=== PATIENT | male | born 1960 | race Caucasian/White ===

== ENCOUNTER 2016-10-28 14:20 | Observation (INO) | payer BC ==
[2016-10-28 15:01] LABS: Hematocrit 52 % (42-52); Hemoglobin 17.5 g/dl (14.0-18.0); Mean Corpuscular HGB Conc 34 g/dl (31-36); Mean Corpuscular Hemoglobin 32 pg (27-31); Mean Corpuscular Volume 94 fL (80-94); Mean Platelet Volume 7 um3 (7.4-10.4); Red Blood Count 5.54 10^6/ul (4.0-5.4); Red Cell Distribution Width 13 % (10.5-15); White Blood Count 9.7 10^3/ul (3.5-10.8)
--- NOTE | 2016-10-28 15:08 | RAD ---
INDICATION: Chest pain COMPARISON: None TECHNIQUE: An AP portable view obtained at 1505 hours is submitted. FINDINGS: Bones/Soft Tissues: There are no acute bony findings. Cardiomediastinal: The cardiomediastinal silhouette is normal. Lungs: There are no infiltrates. Pleura: There are no pleural effusions. Other: None IMPRESSION: NO ACTIVE DISEASE.
[2016-10-28 15:18] LABS: Albumin 4.3 g/dL (3.2-5.2); BUN/Creatinine Ratio 15.9 (8-20); Calcium 9.3 mg/dL (8.6-10.3); EGFR Non-African American 67.6 (>60); Globulin 3.1 g/dL (2-4); Magnesium 2.2 mg/dL (1.9-2.7); Potassium 3.9 mmol/L (3.5-5.0); Total Bilirubin 0.5 mg/dL (0.2-1.0); Total Protein 7.4 g/dL (6.4-8.9)
[2016-10-28] MEDS ORDERED: Aspirin Low Dose CHEW TAB* 81 MG PO ONE (15:19)
[2016-10-28] MEDS ORDERED: Nitroglycerin TAB 0.4 MG* 0.4 MG TAB SL ONE (15:20)
--- NOTE | 2016-10-28 16:23 | ED ---
Houston Castillo Billy, scribed for Lorena Tian MD on 10/28/16 at 1518 . HPI Chest Pain - HPI Summary HPI Summary: Patient is a 56 year-old male coming to [facility] by private car for evaluation of intermittent chest pain for the last two weeks. Patient describes non-radiating , left anterior chest pressure. Pain was unchanged when shoveling snow yesterday or with any movement, although he also states that the pain may sometimes be triggered with activity such as walking. He also states that his symptoms often occur when he has not taken his Losartan medication and his blood pressure elevated. Patient has been seen for stress tests in the past, which have returned normal (last stress test was 2-3 years ago)n in another states. Pt states recently diagnosed with Asthma. Pt states was at his PCP office today and reported the chest pain - was sent to the ED for further eval and stress test. Pt denies diaphoresis, shortness of breath of lightheadedness. Denies any previous cardiac catheterizations. Denies any nausea, vomiting, shortness of breath. Denies any blood thinners. - History of Current Complaint Chief Complaint: EDChestWallPain Time Seen by Provider: 10/28/16 14:47 Hx Obtained From: Patient Onset/Duration: Started Weeks Ago Timing: Intermittent Initial Severity: Moderate Current Severity: Moderate Chest Pain Location: Left Anterior Chest Pain Radiates: No Character: Pressure/Squeezing Aggravating Factor(s): Exertion Alleviating Factor(s): Nothing Associated Signs and Symptoms: Positive: Chest Pain. Negative: Shortness of Breath, Fever, Chills, Nausea, Cough, Abdominal Pain, Vomiting - Allergy/Home Medications Allergies/Adverse Reactions: Allergies Allergy/AdvReac Type Severity Reaction Status Date / Time Diphenhydramine Allergy Dizziness Verified 10/28/16 14:28 [From Benadryl] Home Medications: Home Medications Albuterol 2 neb 10/28/16 [History] Losartan TAB* [Cozaar TAB*] 50 mg PO DAILY 10/28/16 [History Confirmed 10/28/16] Losartan/HCTZ 100/25 (NF) [Hyzaar 100/25 (NF)] 1 tab PO DAILY 10/28/16 [History Confirmed 10/28/16] Montelukast Sodium TAB* [Singulair TAB*] 10 mg PO DAILY 10/28/16 [History Confirmed 10/28/16] Symbicort 160/4.5 (NF) 10/28/16 [History] PMH/Surg Hx/FS Hx/Imm Hx Previously Healthy: Yes Endocrine/Hematology History: Denies: Hx Anticoagulant Therapy, Hx Diabetes Cardiovascular History: Reports: Hx Hypertension - on meds Respiratory History: Reports: Hx Asthma, Hx Sleep Apnea - Surgical History Surgery Procedure, Year, and Place: nasal polyp removal. cyst removal. right knee surgery. 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 Alcohol Use: None Hx Substance Use: No Substance Use Type: Reports: None Hx Tobacco Use: No Smoking Status (MU): Never Smoked Tobacco Review of Systems Negative: Fever, Chills Positive: Chest Pain Negative: Shortness Of Breath, Cough Negative: Abdominal Pain, Vomiting, Diarrhea, Nausea Negative: Rash Negative: Weakness Psychological: Normal All Other Systems Reviewed And Are Negative: Yes Physical Exam Triage Information Reviewed: Yes Vital Signs On Initial Exam: Initial Vitals Temp Pulse Resp BP Pulse Ox 98.4 F 67 18 142/94 99 10/28/16 14:23 10/28/16 14:23 10/28/16 14:23 10/28/16 14:23 10/28/16 14:23 Vital Signs Reviewed: Yes Appearance: Positive: Well-Appearing, No Pain Distress, Well-Nourished Skin: Positive: Warm, Skin Color Reflects Adequate Perfusion, Dry Eyes: Positive: Normal ENT: Positive: Normal ENT inspection, Pharynx normal, TMs normal Neck: Positive: Supple, Nontender, No Lymphadenopathy Respiratory/Lung Sounds: Positive: Clear to Auscultation, Breath Sounds Present , Rhonchi. Negative: Stridor, Wheezes Cardiovascular: Positive: Normal, RRR, Other - no bruits. Negative: Murmur Abdomen Description: Positive: Nontender, No Organomegaly, Soft Bowel Sounds: Positive: Present Musculoskeletal: Positive: Normal, Strength/ROM Intact Neurological: Positive: Normal, Sensory/Motor Intact, Alert, Oriented to Person Place, Time Psychiatric: Positive: Normal AVPU Assessment: Alert - Susan Coma Scale Best Eye Response: 4 - Spontaneous Best Motor Response: 6 - Obeys Commands Best Verbal Response: 5 - Oriented Coma Scale Total: 15 Diagnostics - Vital Signs Vital Signs Temp Pulse Resp BP Pulse Ox 10/28/16 15:02 64 14 96 10/28/16 15:00 138/93 10/28/16 14:23 98.4 F 67 18 142/94 99 - Laboratory Lab Results: Lab Results 10/28/16 Range/Units 14:50 WBC 9.7 (3.5-10.8) 10^3/ul RBC 5.54 H (4.0-5.4) 10^6/ul Hgb 17.5 (14.0-18.0) g/dl Hct 52 (42-52) % MCV 94 (80-94) fL MCH 32 H (27-31) pg MCHC 34 (31-36) g/dl RDW 13 (10.5-15) % Plt Count 270 (150-450) 10^3/ul MPV 7 L (7.4-10.4) um3 Neut % (Auto) 75.3 (38-83) % Lymph % (Auto) 15.7 L (25-47) % [place] % (Auto) 7.6 (1-9) % Eos % (Auto) 0.9 (0-6) % Baso % (Auto) 0.5 (0-2) % Absolute Neuts (auto) 7.3 (1.5-7.7) 10^3/ul Absolute Lymphs (auto) 1.5 (1.0-4.8) 10^3/ul Absolute Monos (auto) 0.7 (0-0.8) 10^3/ul Absolute Eos (auto) 0.1 (0-0.6) 10^3/ul Absolute Basos (auto) 0 (0-0.2) 10^3/ul Absolute Nucleated RBC 0.01 10^3/ul Nucleated RBC % 0.1 Result Diagrams: 10/28/16 14:50 10/28/16 14:50 Lab Statement: Any lab studies that have been ordered have been reviewed, and results considered in the medical decision making process. - Radiology CXR Xray Interpretation: No Acute Changes Radiology Interpretation Completed By: Radiologist - EKG 1447 EKG Interpretation: NSR 62 bpm, no acute ST or T-wave changes. Chest Pain Course/Dx - Course Assessment/Plan: Pt presents through amb triage with reports of chest pressure x 2 weeks - intermittent - sometimes with exertion. Will check EKG, labs. ASA. ntg. likely obv for rule out - Diagnoses Provider Diagnoses: Chest pain - Provider Notifications Discussed Care Of Patient With: Dr. Nguyen (hospitalist) @ 1600: accepts admission. Instructed by Provider To: Admit As Observation Discharge - Discharge Plan Condition: Stable Disposition: ADMITTED TO [facility] The documentation as recorded by the Houston looney Billy accurately reflects the service I personally performed and the decisions made by , Lorena Tian MD.
[2016-10-28] MEDS ORDERED: Temazepam CAP* 15 MG PO PRN (17:37)
[2016-10-28] MEDS ORDERED: Acetaminophen TAB* 325 MG PO PRN (17:37)
[2016-10-28] MEDS ORDERED: Losartan TAB* 25 MG PO ONE (18:17)
[2016-10-28] MEDS ORDERED: Omeprazole CAP* 20 MG PO ONE (18:17)
[2016-10-28] MEDS ORDERED: Acetaminophen TAB* 325 MG PO ONE (19:52)
[2016-10-28] MEDS: Mometasone/Formoter 100/5 MDI INH SCH (20:35)
--- NOTE | 2016-10-28 21:55 | HP ---
HISTORY AND PHYSICAL: DATE OF ADMISSION: 10/28/16 PRIMARY CARE PROVIDER: Dr. Rudd. CHIEF COMPLAINT: Chest pain. HISTORY OF PRESENT ILLNESS: Mr. Kovacs is a 56-year-old male who saw Dr. Rudd today for routine medical evaluation and a physical. The patient stated that he was just recently diagnosed with asthma from an outpatient PFT result. Dr. Rudd placed the patient on Symbicort which he has not been able to fill yet. On review of systems, the patient stated that he has been having chest pains for the past 2 years. Approximately 2 to 3 years ago, he had a negative cardiac stress test in [place]. He moved from [place] in May 2016. His chest pains occur approximately 3 times a week and they are not related to exercise. He describes the discomfort as actually chest pressure localized in bilateral upper chest, nonradiating, lasting "for a while " and the discomfort has no alleviating or aggravating factors. The patient was sent by Dr. Rudd for evaluation in the ER. Here, his EKG is unremarkable and troponin is negative. The patient is going to be placed on observation with a stress test in the morning. PAST MEDICAL HISTORY: 1. Hypertension. 2. Obstructive sleep apnea. The patient did not tolerate CPAP. 3. History of recently diagnosed asthma. 4. History of right knee surgery and recent steroid injection to the right knee 2 weeks ago. 5. History of nasal polyp removal several times. OUTPATIENT MEDICATIONS: Include: 1. Hyzaar 100/25 one tablet daily. 2. Also, Cozaar 50 mg daily. 3. Singulair 10 mg daily. 4. Symbicort 160/4.5 b.i.d. 5. Albuterol inhaler on a p.r.n. basis. ALLERGIES: BENADRYL causes the patient to be "hyper." He also is allergic to CATS. FAMILY HISTORY: Positive for mother who in her 70s secondary to lung cancer. Father when the patient was a baby due to a train accident. SOCIAL HISTORY: The patient denies tobacco, alcohol, or drug use. 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 He is and currently lives alone. He lists 2 people on his surrogate decision making list. One is Marcin Kovacs, his father and another one is Cyndy Byrd, she is a nurse practitioner from [place]. REVIEW OF SYSTEMS: The patient stated that the patient was diagnosed with peripheral neuropathy in his toes, had been numb and tingling for several years now. He also stated that he hears his "lung wheeze " after exercise. Once again, the chest pressure that he had been experiencing for several years now is not related to exercise and different from his asthma symptoms. All the remaining 14 systems were reviewed with the patient and were otherwise negative. PHYSICAL EXAMINATION GENERAL: The patient is a very pleasant 56-year-old male, who is in no acute distress. Alert, awake, and oriented x3. VITAL SIGNS: Blood pressure of 131/81, heart rate 62 and regular, respiratory rate 16, oxygen saturation 97% on room air, and temperature of 97.5. HEENT: Head: Atraumatic, normocephalic. Eyes: Pupils equal, reactive to light and accommodation. Oropharynx clear. Mucosa moist. NECK: Supple. No JVD, no bruit bilaterally. RESPIRATORY: Clear to auscultation bilaterally. CARDIOVASCULAR: Regular rate and rhythm. No murmur. ABDOMEN: Soft, nontender. Bowel sounds present in all 4 quadrants. EXTREMITIES: There is no edema. Pulses are +2 bilaterally. No clubbing or cyanosis. NEUROLOGIC EVALUATION: Nonfocal. Cranial nerves II through XII grossly intact. Motor strength is 5/5 bilaterally. LABORATORY DATA: Shows sodium of 135, potassium 3.9, chloride 102, carbon dioxide 26, BUN 18, creatinine 1.13. White blood cell count of 9.7, hemoglobin of 17.5; hematocrit is 52, and platelets of 217. Portable chest x-ray, impression: "No active disease." EKG showed normal sinus rhythm with heart rate of 62 beats per minute with no ST changes. ASSESSMENT AND PLAN: A 56-year-old male with a recently diagnosed asthma who has been complaining of chest pains for the past 2 years. The patient is going to be placed on overnight observation on telemetry monitored bed. If his second troponin continues to be negative, he is going to undergo a cardiac stress test in the morning. In regards to his asthma, he is not in exacerbation. Symbicort is not on the hospital's formulary and I will place him on Advair during his hospital stay. For his hypertension, his losartan is going to be continued. For DVT prophylaxis, the patient is low risk. TIME SPENT: Approximately 65 minutes were spent on admission of this patient, more than half that time was spent [id number] with the patient during the interview and physical exam. CC: Dr. Rudd; Cyndy Byrd NP, [facility], [place], [place] , fax [phone] * [id number]/[facility] #: [id number] MTDD
[2016-10-29] MEDS ORDERED: Omeprazole CAP* 20 MG PO SCH (06:00)
[2016-10-29] MEDS ORDERED: Losartan TAB* 25 MG PO SCH (09:00)
[2016-10-29] MEDS ORDERED: Montelukast Sodium TAB* 10 MG PO SCH (09:00)
[2016-10-29] MEDS: Mometasone/Formoter 100/5 MDI INH SCH (09:52)
--- NOTE | 2016-10-29 11:31 | RAD ---
Edited for charges. INDICATION: Chest pain COMPARISON: None TECHNIQUE: A single day SPECT protocol was utilized. Rest images were acquired following the intravenous injection of 10.8 millicuries of technetium 99m tetrofosmin. Exercise stress images were acquired following the intravenous administration of 26.0 millicuries of technetium 99m tetrofosmin. The patient was exercised to a peak heart rate of 154 greater than 85% of age predicted maximum which is 93 of age predicted maximum. FINDINGS: There are no defects of the stress-induced or fixed nature. The cardiac chamber size is normal. There are no wall motion abnormalities. The ejection fraction is calculated at 59 percent during stress. IMPRESSION: NO DEFECTS OR STRESS-INDUCED OR FIXED NATURE. ASSESSMENT: LOW-RISK Based on imaging criteria from ACC/AHA 2002 Guideline Update for the Management of Patients With Chronic Stable Angina Table 23. Noninvasive Risk Stratification. MTDD
[2016-10-29 12:18] VITALS: BP 127/87
--- NOTE | 2016-10-30 02:34 | DS ---
DISCHARGE SUMMARY: DATE OF ADMISSION: 10/28/16 DATE OF DISCHARGE: 10/29/16 PRIMARY CARE PROVIDER: Dr. Rudd DISCHARGE DIAGNOSES: 1. Chest pain, most likely noncardiac, with low probability cardiac stress test documented on 10/29/16. SECONDARY DIAGNOSES: 1. History of asthma. 2. History of hypertension. 3. History of obstructive sleep apnea. 4. History of osteoarthritis. MEDICATIONS AT DISCHARGE: Unchanged from admission, which include: 1. Hyzaar 100/25 one tablet daily. 2. Cozaar 50 mg a day. 3. Singular 10 mg a day. 4. Symbicort 160/4.5 b.i.d. 5. Albuterol inhaler on a p.r.n. basis. HOSPITALIZATION COURSE: Mr. Varinder Kovacs is a 56-year-old male who presented complaining of chest pain that had been ongoing intermittently for the past 2 years as described in the history and physical on 10/28/16. The patient remained chest pain-free throughout his hospital stay. His troponins were negative and his telemetry monitoring showed no abnormalities. He underwent a treadmill stress test during which he stated he felt "great." It was read as low risk with EF of 59% during stress and normal cardiac size. There were also no defects of the stress-induced or fixed nature. The patient is being discharged home to follow up with Dr. Rudd in approximately 1 week. Physical exam at time of discharge unchanged from admission. [id number]/[facility] #: [id number] MTDD
== END 2016-10-29 13:20 | disposition home or self-care (01) ==
LOC: ED 14:20 → MEDTELE 16:03
PROVIDERS: ADMIT Internal Medicine; ATTEND Internal Medicine
DX: J45.909 Unspecified asthma, uncomplicated (principal); I10 Essential (primary) hypertension; G47.33 Obstructive sleep apnea (adult) (pediatric); M19.90 Unspecified osteoarthritis, unspecified site
CPT/HCPCS: 36415; 71010; 78452; 80053; 82550; 82553; 83690; 83735; 84484; 85025; 93005; 93017; 99285; A9270-GY; A9502; G0378